=== PATIENT | female | born 2000 | race African-American/Black ===

== ENCOUNTER 2023-12-05 16:50 | Emergency (ER) | payer OTHER ==
[2023-12-05 16:58] VITALS: BP 106/71; PULSE 85; RESP 18; TEMP 98.8; BMI 25.0
[2023-12-05] MEDS ORDERED: ACETAMINOPHEN 500 MG TABLET (FP) ONE (18:10)
[2023-12-05] MEDS: ACETAMINOPHEN 500 MG TABLET (FP) PO ONE (18:16)
== END 2023-12-05 18:35 | disposition home or self-care (01) ==
LOC: JERFT 16:50 → JER 16:50 → JERFT 18:35
DX: O26.892 Other specified pregnancy related conditions, second trimester (principal); M79.10 Myalgia, unspecified site; Z3A.20 20 weeks gestation of pregnancy; O99.712 Diseases of the skin and subcutaneous tissue complicating pregnancy, second trimester; R21 Rash and other nonspecific skin eruption
CPT/HCPCS: 99283-25

== ENCOUNTER 2024-03-14 08:59 | Inpatient (IN) | payer OTHER ==
[2024-03-14 10:04] LABS: HEMOGLOBIN 12.1 GM/dL (10.7-15.3); MCH 28.5 pg (25.7-33.7); MCHC 32.7 g/dl (32.0-36.0); MEAN CELL VOLUME 87.1 fl (80-96); MEAN PLT VOLUME 9.1 fl (7.5-11.1); PLATELET COUNT 163 10^3/uL (134-434); RBC 4.24 M/mm3 (3.60-5.2); RDW 12.9 % (11.6-15.6); WHITE BLOOD COUNT 5.5 K/mm3 (4.0-10.0)
[2024-03-14 10:05] LABS: BASO % 0.3 % (0-2.0); EOS % 2.3 % (0-4.5); LYMPH % 23.4 % (8-40); MONO % 15.1 % (3.8-10.2); NEUT % 58.9 % (42.8-82.8); RETICULOCYTES 1.23 % (0.5-1.5)
[2024-03-14 10:09] LABS: INR 0.93 (0.83-1.09); PROTHROMBIN TIME (PATIENT) 10.5 SEC (9.7-13.0)
[2024-03-14 10:11] LABS: ACTIVATED PTT 25.7 SECONDS (25.2-36.5)
[2024-03-14 10:21] LABS: CHLORIDE 108 mmol/L (98-107); POTASSIUM 3.5 mmol/L (3.5-5.1); SODIUM 140 mmol/L (136-145)
[2024-03-14 10:23] LABS: CALCIUM 9.3 mg/dL (8.5-10.1)
[2024-03-14] MEDS ORDERED: AMPICILLIN SODIUM 2 GM VIAL ONE (10:23)
[2024-03-14 10:24] LABS: ANION GAP 9 mmol/L (4-13); BLOOD UREA NITROGEN 11.2 mg/dL (7-18); CO2 22 mmol/L (21-32); GAMMA GLUTAMYL TRANSPEPTIDASE 14 U/L (5-85); GLUCOSE,RANDOM 83 mg/dL (74-106)
[2024-03-14 10:27] LABS: URIC ACID 3.5 mg/dL (2.6-7.2)
[2024-03-14 10:28] LABS: CREATININE 0.5 mg/dL (0.55-1.3); SGOT/AST 20 U/L (15-37); SGPT/ALT 33 U/L (13-61)
[2024-03-14] MEDS: LACTATED RINGERS SOLUTION 1,000 ML/1,000 ML INFUS.BAG IV SCH (10:33)
[2024-03-14] MEDS: AMPICILLIN - 2 GM in SODIUM CHLORIDE 100 ML IVPB ONE (10:33)
[2024-03-14] MEDS: MISOPROSTOL 25 MCG TABLET (COMPOUNDED BY PHARMACY) PV ONE (11:25)
[2024-03-14 11:27] LABS: PH,URINE 6.5 (5.0-8.0); URINE APPEARANCE CLOUDY; URINE BILIRUBIN NEGATIVE (NEGATIVE); URINE COLOR YELLOW; URINE GLUCOSE (UA) NEGATIVE (NEGATIVE); URINE KETONE NEGATIVE (NEGATIVE); URINE LEUK ESTERASE NEGATIVE (NEGATIVE); URINE NITRITE NEGATIVE (NEGATIVE); URINE PROTEIN NEGATIVE (NEGATIVE); URINE UROBILINOGEN 0.2 mg/dL (0.2-1.0)
[2024-03-14 11:44] LABS: CREATININE, URINE RANDOM < 13.0 mg/dL (30-150)
[2024-03-14 11:59] VITALS: BMI 23.0
[2024-03-14] MEDS ORDERED: AMPICILLIN SODIUM 1 GM VIAL ONE ×2 (14:47→18:24)
[2024-03-14] MEDS: AMPICILLIN - 1 GM in SODIUM CHLORIDE 100 ML IVPB SCH (14:51)
[2024-03-14] MEDS: OXYTOCIN 30 UNITS in 0.9% NS 30 UNIT/500 ML INFUS.BAG IVPB SCH (15:50)
[2024-03-14] MEDS ORDERED: OXYTOCIN 30 UNITS in 0.9% NS 30 UNIT/500 ML INFUS.BAG IVPB ONE (15:52)
[2024-03-14] MEDS ORDERED: BUPIVACAINE HCL/PF 0.25% (2.5MG/ML) 10 ML VIAL ONE (18:08)
[2024-03-14] MEDS ORDERED: FENTANYL CITRATE/PF 50 MCG/ML VIAL ONE (18:08)
[2024-03-14] MEDS ORDERED: FENTANYL/BUPIVACAINE/NS/PF - PCEA - 50 ML DISP.SYRIN EP ONE (19:25)
[2024-03-14] MEDS ORDERED: NALOXONE HCL 0.4 MG/ML VIAL IVPUSH PRN (19:26)
[2024-03-14] MEDS: FENTANYL/BUPIVACAINE/NS/PF - PCEA - 50 ML DISP.SYRIN EP SCH (19:45)
[2024-03-14] MEDS ORDERED: OXYTOCIN 20 UNITS in 0.9% NS 20 UNIT/1,000 ML INFUS.BAG IV ONE (19:51)
[2024-03-14] MEDS ORDERED: LIDOCAINE HCL 1% PRESERVATIVE FREE - 30ML VIAL ONE (19:51)
[2024-03-14] MEDS: OXYTOCIN 20 UNITS in 0.9% NS 20 UNIT/1,000 ML INFUS.BAG IV SCH (20:29)
[2024-03-14] MEDS ORDERED: WITCH HAZEL 50% (TUCKS) 40 PAD/JAR PAD TP PRN (20:42)
[2024-03-14] MEDS ORDERED: ACETAMINOPHEN 325 MG TABLET (FP) PO PRN (20:42)
[2024-03-14] MEDS ORDERED: BENZOCAINE 20% 57 GM BOTTLE TP PRN (20:42)
[2024-03-14] MEDS ORDERED: BISACODYL 10 MG SUPP.RECT RC PRN (20:42)
[2024-03-14] MEDS ORDERED: BENZOCAINE 28 GM HEMORRHOIDAL OINTMENT TP PRN (20:42)
[2024-03-15] MEDS: BUTORPHANOL TARTRATE 1 MG/ML VIAL IVPB ONE (00:04)
[2024-03-15] MEDS: PROMETHAZINE HCL 25 MG/1 ML VIAL IVPB ONE (00:35)
[2024-03-15] MEDS: IBUPROFEN 600 MG TABLET (FP) PO PRN (04:48)
[2024-03-15 07:30] LABS: BASO % 0.2 % (0-2.0); EOS % 0.8 % (0-4.5); HEMOGLOBIN 12.1 GM/dL (10.7-15.3); LYMPH % 14.8 % (8-40); MCH 28.4 pg (25.7-33.7); MCHC 32.8 g/dl (32.0-36.0); MEAN CELL VOLUME 86.5 fl (80-96); MEAN PLT VOLUME 9.6 fl (7.5-11.1); MONO % 9.8 % (3.8-10.2); NEUT % 74.4 % (42.8-82.8); PLATELET COUNT 166 10^3/uL (134-434); RBC 4.27 M/mm3 (3.60-5.2); RDW 12.7 % (11.6-15.6); WHITE BLOOD COUNT 9.9 K/mm3 (4.0-10.0)
[2024-03-15] MEDS: CLOTRIMAZOLE 1% CREAM TP SCH (10:00)
[2024-03-15] MEDS: PRENATAL VITAMINS W/ FOLIC ACID TABLET (FP) PO SCH (10:25)
[2024-03-15] MEDS ORDERED: SENNOSIDES/DOCUSATE COMBO (SENNA PLUS) TABLET (UD) PO PRN (22:00)
[2024-03-16 16:28] VITALS: BP 124/69; PULSE 85; RESP 17; TEMP 97.6
== END 2024-03-16 18:54 | disposition home or self-care (01) | DRG 560 ==
LOC: JLDR 08:59 → J3W 23:05
PROVIDERS: ADMIT Obstetrics & Gynecology; ATTEND Obstetrics & Gynecology
PROC: 10E0XZZ Delivery of Products of Conception, External Approach (ICD-10-PCS; principal; 2024-03-14)
PROC: 3E0DXGC Introduction of Other Therapeutic Substance into Mouth and Pharynx, External Approach (ICD-10-PCS; 2024-03-14)
PROC: 10907ZC Drainage of Amniotic Fluid, Therapeutic from Products of Conception, Via Natural or Artificial Opening (ICD-10-PCS; 2024-03-14)
PROC: 3E033VJ Introduction of Other Hormone into Peripheral Vein, Percutaneous Approach (ICD-10-PCS; 2024-03-14)
PROC: 0KQM0ZZ Repair Perineum Muscle, Open Approach (ICD-10-PCS; 2024-03-14)
DX: O13.4 Gestational [pregnancy-induced] hypertension without significant proteinuria, complicating childbirth (principal); O70.1 Second degree perineal laceration during delivery; O99.824 Streptococcus B carrier state complicating childbirth; Z3A.39 39 weeks gestation of pregnancy; Z37.0 Single live birth
CPT/HCPCS: 36415; 59409; 80048; 81003; 82570; 82977; 83010; 84156; 84450; 84460; 84550; 85025; 85045; 85610; 85730; 86780; 86850; 86900; 86901

== ENCOUNTER 2024-09-02 14:03 | Emergency (ER) | payer OTHER ==
[2024-09-02 14:16] VITALS: BP 129/77; PULSE 78; RESP 20; TEMP 98.6; BMI 23.9
== END 2024-09-02 15:37 | disposition home or self-care (01) ==
LOC: JERFT 14:03
DX: L08.9 Local infection of the skin and subcutaneous tissue, unspecified (principal)
CPT/HCPCS: 99283-25